=== PATIENT | female | born 1990 | race Caucasian/White ===

== ENCOUNTER 2018-03-23 18:39 | Emergency (ER) | payer OTHER ==
[~2018-03-23] VITALS: Ht 157.5 cm; Wt 95.3 kg
[~2018-03-23 18:39] MED LIST: HYDR1TAB PO
--- OUTSIDE RECORDS SUMMARY | 2018-03-23 18:46 | XMS REPORT ---
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 Info Not Available Non Drug Allergy Problems Problem Type Condition Code Onset Dates Condition Status Assessment Upper respiratory infection J06.9 Active Assessment Otitis media, left H66.92 Active Problem Cough 786.2 Active Medications Medication Code System Code Instructions Start Date End Date Status Dosage Amoxicillin [facility] [address]-02 500 MG Orally 3 times a day Aug 07, 2015 Aug 17, 2015 1 tablet Procedures Procedure Coding System Code Date Office Visit, Est Pt., Level 3 CPT-4 84977 Aug 07, 2015 Vital Signs Date/Time: Aug 07, 2015 Temperature 97.0 F Weight 208.5 lbs Height 62 in BMI 38.13 Index Blood Pressure Diastolic 80 mmHg Blood Pressure Systolic 122 mmHg Cardiac Monitoring Heart Rate 80 bpm Results No Known Results Summary Purpose e[employer] Submission
--- NOTE | 2018-03-23 19:12 | ED EENT ---
History of Present Illness General Chief Complaint: Foreign Body Stated Complaint: PART OF EARPLUG STUCK IN R EAR Nursing Triage Note: EAR PLUG STUCK IN RIGHT EAR. Source: patient Exam Limitations: no limitations History of Present Illness Date Seen by Provider: Mar 23, 2018 Time Seen by Provider: 19:10 Initial Comments Patient was sent over from [facility] with the tip of an earplug stuck in her right ear. 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 Timing/Duration: other (prior to arrival.) Location: ear (R) Allergies and Home Medications Allergies Coded Allergies: No Known Drug Allergies (Unverified , 04/04/12) Home Medications Hydrocodone Bit/Acetaminophen 1 Each Tablet, 1-2 EACH PO Q4HR PRN Prescribed by: SHIV BIANCHI on 04/04/122121 Patient Home Medication List Home Medication List Reviewed: Yes Review of Systems Constitutional: see HPI; No chills, No diaphoresis Eyes: See HPI; Denies Blindness, Denies Blurred Vision, Denies Drainage Ears: See HPI, Pain, Other (foreign body in right here ) Nose: see HPI; denies clots, denies congestion Mouth: see HPI; denies clots, denies loose teeth Throat: see HPI; denies pain, denies swelling, denies discharge Respiratory: see HPI; No cough, No dyspnea on exertion Cardiovascular: no symptoms reported Gastrointestinal: see HPI; No abdominal pain, No constipation Musculoskeletal: see HPI; No back pain, No gout Skin: see HPI; No change in color, No change in hair/nails Neurological: See HPI; Denies Anxiety, Denies Depressed Hematologic/Lymphatic: See HPI; Denies Anemia, Denies Blood Clots Immunological/Allergic: see HPI; denies food allergy, denies grass allergy All Other Systems Reviewed Negative Unless Noted: Yes Past Ivcjqte-Kjqyrm-Ovthvy Hx Past Med/Social Hx: Reviewed Nursing Past Med/Soc Hx Patient Social History Alcohol Use: Denies Use Recreational Drug Use: No Smoking Status: Never a Smoker 2nd Hand Smoke Exposure: No Recent Foreign Travel: No Contact w/Someone Who Travel: No Recent Infectious Disease Expo: No Recent Hopitalizations: No Immunizations Up To Date Tetanus Booster (TDap): Unknown PED Vaccines UTD: Yes Seasonal Allergies Seasonal Allergies: No Past Medical History Surgeries: No Respiratory: No Cardiac: No Neurological: No Genitourinary: No Gastrointestinal: No Musculoskeletal: No Endocrine: No HEENT: No Cancer: No Psychosocial: No Integumentary: No Blood Disorders: No Family Medical History Reviewed Nursing Family Hx Physical Exam Vital Signs Vital Signs - First Documented 03/23/18 18:45 Temp 98.2 Pulse 82 Resp 18 B/P (MAP) 152/88 (109) Pulse Ox 100 O2 Delivery Room Air Height, Weight, BMI Height: 5'2" Weight: 210lbs. oz. 95.842142ra; 27.43 BMI Method:Stated General Appearance: WD/WN, no apparent distress Eyes: bilateral eye normal inspection, bilateral eye PERRL, bilateral eye EOMI Ears: right ear foreign body (there is a blue colored plastic foreign body in the ear canal. The ear canal is not red and there is no abrasions noted.); left ear auricle normal, left ear canal normal, left ear TM normal Nose: normal inspection Mouth/Throat: normal mouth inspection, pharynx normal Neck: non-tender, full range of motion, supple, normal inspection Cardiovascular: regular rate, rhythm, no edema, no gallop, no JVD, no murmur Respiratory: chest non-tender, lungs clear, normal breath sounds, no respiratory distress, no accessory muscle use Gastrointestinal: normal bowel sounds, non tender, soft, no organomegaly Neurologic/Psychiatric: alert, normal mood/affect, oriented x 3 Skin: normal color, warm/dry Procedures/Interventions I&D : Site: right ear canal. Progress The tip of the earplug was able to be removed with a pair of alligator forceps. The tympanic membrane was intact after removal of the foreign body. The ear canal is not reddened and there is no abrasions. Progress/Results/Core Measures Results/Orders Vital Signs/I&O Blood Pressure Mean: 109 Departure Impression Primary Impression: Foreign body in ear Qualified Codes: T16.1XXA - Foreign body in right ear, initial encounter Disposition: 01 HOME, SELF-CARE Condition: Stable/Unchanged Departure-Patient Inst. Decision time for Depature: 19:10 Referrals: [facility] (PCP/Family) Primary Care Physician Patient Instructions: Removal of Foreign Body in Ear, Child Add. Discharge Instructions: Watch for signs of infection such as fever or increased pain to the ear. Return back to the emergency room for any concerns as needed. Follow-up with your doctor within 1 week for recheck. All discharge instructions reviewed with patient and/or family. Voiced understanding. HINA MCCULLOUGH Mar 23, 2018 19:12
[2018-03-23 19:17] VITALS: BP 152/88
== END 2018-03-23 19:16 | disposition home or self-care (01) ==
LOC: EDUNIT# 18:39 → ER 18:42
DX: T16.1XXA Foreign body in right ear, initial encounter (principal)
CPT/HCPCS: 99282

== ENCOUNTER 2023-06-18 10:32 | Outpatient (CLI) | payer BC | END 2023-06-18 10:55 | LOC: SLEEP 10:32 | PROVIDERS: ATTEND Family Medicine | DX: G47.33 Obstructive sleep apnea (adult) (pediatric) (principal); G47.10 Hypersomnia, unspecified; R06.83 Snoring | CPT/HCPCS: G0399 ==